=== PATIENT | female | born 1995 ===

== ENCOUNTER 2018-07-18 17:56 | Emergency (ER) | payer BC, MEDICAID ==
--- NOTE | 2018-07-18 18:16 | ED PDOC ---
Arrival/HPI - General Historian: Patient - History of Present Illness Narrative History of Present Illness (Text): 07/18/18 18:12 23yo female with no pmhx who present with complaint of tingling and numbness of her left 3rd finger s/p trauma 3days ago. States she accidentally hit a car door on her finger. Reports not pain, but only the tingling and numbness. She have FROM. Denies focal weakness and any other complaint. Past Medical History - Provider Review Nursing Documentation Reviewed: Yes - Gastrointestinal Other/Comment: Appendicitis - Psychiatric Hx Substance Use: No - Surgical History Hx Appendectomy: Yes - Anesthesia Hx Anesthesia: Yes Hx Anesthesia Reactions: No Family/Social History - Physician Review Nursing Documentation Reviewed: Yes Family/Social History: Unknown Family HX Smoking Status: Never Smoked Hx Alcohol Use: No Hx Substance Use: No Allergies/Home Meds Allergies/Adverse Reactions: Allergies No Known Allergies Allergy (Unverified 07/18/18 18:12) Home Medications: Home Meds Medication Instructions Recorded Confirmed RX: No Known Home Med 07/18/18 07/18/18 Review of Systems - Physician Review All systems were reviewed & negative as marked: Yes - Review of Systems Constitutional: Normal Eyes: Normal ENT: Normal Respiratory: Normal Cardiovascular: Normal Gastrointestinal: Normal Genitourinary Female: Normal Musculoskeletal: Arthralgias (Left 3rd finger paresthesia) Skin: Normal Neurological: Normal Endocrine: Normal Hemo/Lymphatic: Normal Psychiatric: Normal Physical Exam Vital Signs Reviewed: Yes Vital Signs Temp Pulse Resp BP Pulse Ox 07/18/18 18:08 98.2 F 98 H 18 124/77 100 Temperature: Afebrile Blood Pressure: Normal Pulse: Regular Respiratory Rate: Normal Appearance: Positive for: Well-Appearing, Non-Toxic, Comfortable Pain Distress: None Mental Status: Positive for: Alert and Oriented X 3 - Systems Exam Head: Present: Atraumatic, Normocephalic Pupils: Present: PERRL Extroacular Muscles: Present: EOMI Conjunctiva: Present: Normal Mouth: Present: Moist Mucous Membranes Neck: Present: Normal Range of Motion Respiratory/Chest: Present: Clear to Auscultation, Good Air Exchange. No: Respiratory Distress, Accessory Muscle Use Cardiovascular: Present: Regular Rate and Rhythm, Normal S1, S2. No: Murmurs Abdomen: No: Tenderness, Distention, Peritoneal Signs Back: Present: Normal Inspection Upper Extremity: Present: Normal Inspection, Normal ROM, NORMAL PULSES, Neurovascularly Intact, Capillary Refill < 2s, Norm 2-Pt Discrimination. No: Cyanosis, Edema, Tenderness, Swelling, Temperature Abnormalties, Deformity Lower Extremity: Present: Normal Inspection. No: Edema Neurological: Present: GCS=15, CN II-XII Intact, Speech Normal Skin: Present: Warm, Dry, Normal Color. No: Rashes Psychiatric: Present: Alert, Oriented x 3, Normal Insight, Normal Concentration Medical Decision Making ED Course and Treatment: 07/18/18 22:24 PT presented for stated history. She was NVI. Strength was 5/5. Left hand Ct Result - Negative Result was DW the pt and she was referred to a Neurologist. - RAD Interpretation Narrative RAD Interpretations (Text): CT of left upper extremity reviewed by radiologist, shows: Jul 18, 2018 7:07:36 PM EST IMPRESSION: Limited study due to motion degradation with multiple artifacts mimicking fractures. No definite fracture however please correlate with plain radiography. Glass Glazier: Radiologist Disposition/Present on Arrival - Present on Arrival Any Indicators Present on Arrival: No History of DVT/PE: No History of Uncontrolled Diabetes: No Urinary Catheter: No History of Decub. Ulcer: No History Surgical Site Infection Following: None - Disposition Have Diagnosis and Disposition been Completed?: Yes Diagnosis: Paresthesia Disposition: HOME/ ROUTINE Disposition Time: 20:20 Patient Plan: Discharge Condition: STABLE Discharge Instructions (ExitCare): Paresthesias (DC) Additional Instructions: Follow up with your Doctor/Neurologist Return to ED for any new or worsening symptoms Referrals: Jose Jensen MD [Staff Provider] - Follow up with primary Forms: [employer] ([place]ish)
[2018-07-18 18:21] VITALS: RESP 18
[2018-07-18 20:27] VITALS: BP 129/68; PULSE 99; TEMP 98.7; O2SAT 99
--- NOTE | 2018-07-19 10:40 | CT ---
Date of service: 07/18/2018 PROCEDURE: CT of the left hand without contrast HISTORY: LEft hand/3rd finger paresthesia COMPARISON: TECHNIQUE: Radiation dose: Total exam DLP = 209.84 mGy-cm. This CT exam was performed using one or more of the following dose reduction techniques: Automated exposure control, adjustment of the mA and/or kV according to patient size, and/or use of iterative reconstruction technique. FINDINGS: There is some motion artifact which mimics fractures on reconstructed images. There is no evidence of fracture or bony lesion. There is no soft tissue swelling. There is no evidence of foreign body The report concurs with the preliminary [facility] report IMPRESSION: Negative study
== END 2018-07-18 20:35 | disposition home or self-care (01) ==
LOC: ED 17:56
DX: R20.2 Paresthesia of skin (principal)